=== PATIENT | female | born 1935 | race Caucasian/White ===

== ENCOUNTER 2016-07-24 09:10 | Day surgery (SDC) ==
[2016-07-22 15:12] LABS: MANUAL DIFF NEEDED? NO
[2016-07-22 15:14] LABS: BASO% 0.5 % (0.0-0.8); EOS# 0.44 X1000 (0.0-0.7); EOS% 7.2 % (0.0-10.0); HEMATOCRIT 36.7 % (37.0-47.0); HEMOGLOBIN 12.3 g/dL (12.0-16.0); LYMPH# 1.14 X1000 (1.2-3.4); LYMPH% 18.6 % (20.5-51.1); MCH 31.5 PG (27-31); MCHC 33.5 g/dL (33-37); MCV 93.9 FL (81-99); MONO# 0.62 X1000 (0.11-0.59); MONO% 10.1 % (1.7-9.3); MPV 10.4 FL (7.4-10.4); NEUT% 63.6 % (42.2-75.2); PLT 183 X1000 (130-400); RBC 3.91 XMIL (4.2-5.4)
[2016-07-22 15:38] LABS: CALCIUM 9.5 mg/dL (8.8-10.2)
--- NOTE | 2016-07-22 15:39 | EKG Report ---
Test Performed on : 07/22/2016 3:06:19 PM Test Reason : PAT Blood Pressure : / mmHG Vent. Rate : 072 BPM Atrial Rate : 072 BPM P-R Int : 202 ms QRS Dur : 088 ms QT Int : 382 ms P-R-T Axes : 059 031 077 degrees QTc Int : 418 ms Normal sinus rhythm. Cannot rule out Anterior infarct , age undetermined Nonspecific T wave abnormality aVL Nonspecific T wave abnormality V1-V2 Poor R-wave progression V1-V4 Abnormal ECG No previous ECGs available Confirmed by Ayden Casas DO ([id number]) on 07/22/2016 7:03:43 PM
[2016-07-24] MEDS ORDERED: PEPCID ONE (09:45)
[2016-07-24] MEDS ORDERED: KEFZOL 2 GM/D5W 50 ML ONE (09:45)
[2016-07-24] MEDS ORDERED: REGLAN ONE (09:45)
[2016-07-24] MEDS ORDERED: LR 1,000 ML ONE ×2 (09:45→15:03)
--- NOTE | 2016-07-24 11:50 | Diag Imaging Result Document ---
PROCEDURE NAME: LYMPHOSCINTIGRAPHY W/IMG - 07/24/2016 LYMPHOSCINTIGRAPHY OF THE LEFT BREAST: COMPARISON: None. FINDINGS: 540 mCi of radiotracer was injected. After the appropriate delay, there was successful visualization of at least 2 sentinel lymph nodes in the left axilla. IMPRESSION: Successful lymphoscintigraphy of the left breast.
[2016-07-24] MEDS ORDERED: METHYLENE BLUE 1% ONE (12:02)
[2016-07-24] MEDS ORDERED: SODIUM CHLORIDE 0.9% ONE (12:02)
[2016-07-24] MEDS ORDERED: SENSORCAINE 0.25%/EPI 1:200,000 ONE (12:02)
[2016-07-24] MEDS ORDERED: FENTANYL ONE (13:17)
[2016-07-24] MEDS ORDERED: DIPRIVAN 1% ONE (13:17)
[2016-07-24] MEDS ORDERED: MORPHINE ONE ×2 (14:48→14:56)
--- NOTE | 2016-07-24 15:15 | OPERATIVE NOTE ---
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 POSTOPERATIVE DIAGNOSIS: Left lower inner breast cancer. PROCEDURES: 1. Injection of methylene blue. 2. [place] lymph node mapping. 3. Left mastectomy. 4. Left sentinel lymph node biopsy. SURGEON: Kulwinder Copeland MD. PRESS ASSISTANT: Dr. Son (Dr. Son after retraction and identification of the sentinel lymph node). ANESTHESIA: General endotracheal. FINDINGS: Left breast mass noted. The sentinel lymph node measured 4026. There appeared to be 2 lymph nodes in the area that we removed, both appeared to be benign and mostly replaced by fat. COMPLICATIONS: None at time of dictation. ESTIMATED BLOOD LOSS: 50 mL. SPECIMENS REMOVED: Left breast with medial stitch being single, double stitch being superior and sentinel lymph node x1. DRAINS: Two 10-Kisw[place]ili flat drains. BRIEF HISTORY: Patient is an 80-year-old female, a biopsy-proven breast cancer. It is felt the patient would benefit from a mastectomy and sentinel lymph node biopsy. The risks, benefits, and alternatives were discussed. She voiced understanding and wished to proceed with procedure. DESCRIPTION OF PROCEDURE: After informed consent was obtained, patient was brought to the operative theatre, and placed on the operating table in the supine position. General endotracheal anesthesia was then performed without complication. A formal time-out was then performed confirming patient, date, and procedure. All were in agreement. At that time, the attention was given to the left breast. It was previously confirmed, marked, and identified the patient in preoperative holding. She previously had had the sentinel lymph node injection. Prior to prepping the left breast, we did inject methylene blue and massaged the breast for approximately 5 minutes. At that point, we prepped and draped the left breast in the standard fashion. After the time-out, we performed elliptical incision to perform our mastectomy. We removed the breast in it's entirety with the borders being sternomedially, the inframammary fold inferiorly, the axilla laterally, and the clavicle superiorly. We removed the breast off the pectoralis muscle. I maintained hemostasis with electrocautery and passed it off with the orientation as described above. The mass itself was incorporated into the mastectomy. We then turned our attention to perform the sentinel lymph node. There was some difficulty being able to find the sentinel lymph node which up took the radiotracer. It had a mild uptake of the methylene blue. We removed this and sent it off to pathology. The preliminary report was that there were 2 lymph nodes mostly replaced by fat but no obvious cancer noted in them. We turned our attention back to the axilla. There are no other areas of significant uptake. We irrigated out the area copiously until the suction fluid was clear. We then placed 2 drains, one for the mastectomy and one for the axilla. We then closed the skin in layers using 3-0 Vicryl and 4-0 Monocryl. The patient tolerated procedure well and was transferred back to recovery room in stable condition. Postoperatively, we will watch her overnight and manage postoperative pain.
[2016-07-24] MEDS ORDERED: ZOFRAN IV PRN (15:38)
[2016-07-24] MEDS ORDERED: XYLOCAINE-MPF 2% ONE (16:06)
[2016-07-24] MEDS ORDERED: ZOFRAN ONE (16:06)
[2016-07-24] MEDS ORDERED: DECADRON ONE (16:06)
[2016-07-24] MEDS ORDERED: XANAX PO PRN (16:19)
[2016-07-24] MEDS: LR 1,000 ML IV SCH (18:13)
[2016-07-24] MEDS ORDERED: NEURONTIN PO SCH (21:00)
[2016-07-24] MEDS ORDERED: PRAVACHOL PO SCH (21:00)
[2016-07-24] MEDS: TRENTAL PO SCH (22:01)
[2016-07-24] MEDS: COLACE PO SCH (22:05)
[2016-07-24] MEDS: PERIDEX MT SCH (22:05)
[2016-07-24] MEDS: NORCO-10 PO PRN (22:06)
--- NOTE | 2016-07-25 05:41 | PROGRESS NOTE ---
DATE: 07/25/2016 SUBJECTIVE: The patient is doing well. No major issues. Pain controlled. Status post mastectomy. OBJECTIVE: Vital Signs: Patient is currently afebrile. Her vital signs have been stable. General Examination: No acute distress. Alert and oriented x3. Well-nourished, well-developed, female who looks her stated age. Mastectomy site on the left with dressing in place. No hematoma. ALTHEA drains in place with serosanguineous output. Musculoskeletal: Able to move left extremity normally. ASSESSMENT/PLAN: An 80-year-old, female, status post left mastectomy with sentinel lymph node biopsy. Postoperative day 1. At this time, the patient is clinically doing well. We will discharge home after lunch.
[2016-07-25] MEDS ORDERED: TYLENOL PO PRN (06:12)
[2016-07-25] MEDS: LR 1,000 ML IV SCH (06:47)
[2016-07-25 07:26] VITALS: BP 140/68
[2016-07-25] MEDS ORDERED: INSULIN PEN NEEDLES ONE (07:34)
[2016-07-25] MEDS ORDERED: NON-FORMULARY BULK MED SUBQ SCH (09:00)
[2016-07-25] MEDS ORDERED: PRINIVIL PO SCH (09:00)
[2016-07-25] MEDS ORDERED: TRICOR PO SCH (09:00)
[2016-07-25] MEDS ORDERED: ASPIRIN PO SCH (09:00)
[2016-07-25] MEDS: COLACE PO SCH (09:14)
[2016-07-25] MEDS: TRENTAL PO SCH (09:14)
[2016-07-25] MEDS: PERIDEX MT SCH (09:14)
[2016-07-25] MEDS: NORCO-10 PO PRN (10:03)
== END 2016-07-25 10:23 | disposition home or self-care (01) ==
LOC: OPS 09:10 → 4N 15:16 → UNDOADMOB 15:16 → UNDODISOB 07-25 10:23 → OPS 07-25 10:23
PROVIDERS: ATTEND Surgery
DX: C50.312 Malignant neoplasm of lower-inner quadrant of left female breast (principal); E11.9 Type 2 diabetes mellitus without complications; I10 Essential (primary) hypertension; M19.90 Unspecified osteoarthritis, unspecified site; E78.00 Pure hypercholesterolemia, unspecified
CPT/HCPCS: 78195; 80048; 82948; 85025; 88307; 88331; 93005; 93010; 94761; 94799; A9520; J0690; J1100; J2270; J2405; J3010; J7120; Q9968